=== PATIENT | female | born 1955 | race Caucasian/White ===

== ENCOUNTER → 2017-03-14 | Outpatient (CLI) | payer BC ==
[~2017-03-14] MED LIST: CALCTAB5 PO; CHOL100010 PO; HYDR-5688 PO; VALA500T39 PO
[2017-03-14 10:55] LABS: BLOOD UREA NITROGEN 11 mg/dl (7-18); BUN/CREATININE RATIO 14.2 (10-20); CARBON DIOXIDE 29 mmol/L (21-32); CHLORIDE 106 mmol/L (98-107); CHOLESTEROL 225 mg/dl (0-200); CREATININE 0.74 mg/dl (0.60-1.20); GLUCOSE 98 mg/dl (70-99); SODIUM 142 mmol/L (136-145)
[2017-03-14 10:57] LABS: CALCIUM 9.8 mg/dl (8.5-10.1)
[2017-03-14 11:06] LABS: CHOLESTEROL/HDL RATIO 4.2; HDL CHOLESTEROL 53 mg/dl; LDL CHOLESTEROL CALCULATED 130 mg/dl; TRIGLYCERIDES 210 mg/dl (0-150); VERY LOW DENSITY LIPOPROT CALC 42 mg/dl
== END | disposition home or self-care (01) ==
LOC: C.LABBC 08:34
PROVIDERS: ATTEND Internal Medicine Geriatric Medicine
DX: M85.80 Other specified disorders of bone density and structure, unspecified site (principal); R73.9 Hyperglycemia, unspecified; E78.5 Hyperlipidemia, unspecified; R03.0 Elevated blood-pressure reading, without diagnosis of hypertension; L71.9 Rosacea, unspecified

== ENCOUNTER → 2017-04-18 | Outpatient (CLI) | payer BC ==
[~2017-04-18] MED LIST changes: -HYDR-5688 PO
--- NOTE | 2017-04-18 10:48 | DIAGNOSTIC IMAGING REPORT ---
CHEST 2 VIEWS ROUTINE CLINICAL HISTORY: COUGH COMPARISON STUDY: 11/28/2014 FINDINGS: The cardiac and mediastinal contours are normal. There is no evidence of focal pulmonary consolidation. There is no evidence of failure. No pleural effusions are visualized.[ IMPRESSION: No active disease in the chest. Electronically signed by: Marc Long M.D. 04/18/2017 10:47 AM Dictated Date/Time: 04/18/2017 10:47 AM
== END ==
LOC: C.RADBC 10:30
PROVIDERS: ATTEND Internal Medicine Geriatric Medicine
DX: R05 Cough (principal)

== ENCOUNTER → 2017-09-01 | Outpatient (CLI) | payer BC ==
--- NOTE | 2017-09-01 14:35 | MAMMOGRAPHY REPORT ---
BILATERAL DIGITAL SCREENING MAMMOGRAM TOMOSYNTHESIS WITH CAD: 09/01/2017 CLINICAL HISTORY: Routine screening. Patient has no complaints. TECHNIQUE: Breast tomosynthesis in addition to standard 2D mammography was performed. Current study was also evaluated with a Computer Aided Detection (CAD) system. COMPARISON: Comparison is made to exams dated: 08/31/2016 mammogram, 08/29/2015 mammogram, 4 mammogram, 08/27/2013 mammogram, 08/24/2012 mammogram, and 08/23/2011 mammogram - [facility]. BREAST COMPOSITION: There are scattered areas of fibroglandular density in both breasts. FINDINGS: No suspicious masses, calcifications, or areas of architectural distortion are noted in ei ther breast. There has been no significant interval change compared to prior exams. IMPRESSION: ACR BI-RADS CATEGORY 1: NEGATIVE There is no mammographic evidence of malignancy. A 1 year screening mammogram is recommended. The pa tient will receive written notification of the results. Approximately 10% of breast cancers are not detected with mammography. A negative mammographic report should not delay biopsy if a clinically suggestive mass is present. Felicity Adame M.D. ah/:09/01/2017 13:49:23 Rivet Tosser: Jessica RAMACHANDRAN(Radha)(M), [facility] letter sent: Normal 1/2 BI-RADS Code: ACR BI-RADS Category 1: Negative
== END | disposition home or self-care (01) ==
LOC: C.MAMM 13:12
PROVIDERS: ATTEND Internal Medicine Geriatric Medicine
DX: Z12.31 Encounter for screening mammogram for malignant neoplasm of breast (principal)

== ENCOUNTER → 2017-11-16 | Outpatient (CLI) | payer OTHER ==
[~2017-11-16] MED LIST changes: +CALC-393 PO; +CHOL1TAB12 PO; +CIPR250T26 PO; +METR-163 PO; -VALA500T39 PO; +VALA500T41 PO
[2017-11-16 11:10] LABS: BASO % 0.4 %; BASO ABS # 0.02 K/uL (0-0.2); EOS % 2.3 %; EOS ABS # 0.12 K/uL (0-0.5); HEMATOCRIT 40.2 % (37-47); HEMOGLOBIN 13.9 g/dL (12.0-16.0); IG# 0.02 K/uL (0.00-0.02); LYMPH % 34.5 %; LYMPH ABS # 1.79 K/uL (1.2-3.4); MEAN CELL VOLUME 92.2 fL (80-100); MEAN CORPUSCULAR HEMOGLOBIN 31.9 pg (25-34); MEAN CORPUSCULAR HGB CONC 34.6 g/dl (32-36); MEAN PLATELET VOLUME 10.5 fL (7.4-10.4); MONO % 6.6 %; MONO ABS # 0.34 K/uL (0.11-0.59); NEUT % 55.8 %; PLATELET COUNT 218 K/uL (130-400); RED CELL DISTRIBUTION WIDTH CV 12.9 % (11.5-14.5); RED CELL DISTRIBUTION WIDTH SD 43.4 fL (36.4-46.3); WHITE BLOOD COUNT 5.19 K/uL (4.8-10.8)
[2017-11-16 11:21] LABS: HEMOGLOBIN A1C 5.2 % (4.5-5.6)
[2017-11-16 11:26] LABS: BLOOD UREA NITROGEN 14 mg/dl (7-18); CALCIUM 9.3 mg/dl (8.5-10.1); CARBON DIOXIDE 29 mmol/L (21-32); CREATININE 0.77 mg/dl (0.60-1.20); GLUCOSE 101 mg/dl (70-99); POTASSIUM 3.9 mmol/L (3.5-5.1); SODIUM 138 mmol/L (136-145)
[2017-11-16 11:28] LABS: CHOLESTEROL 222 mg/dl (0-200); LDL CHOLESTEROL CALCULATED 123 mg/dl
== END | disposition home or self-care (01) ==
LOC: C.LABBC 08:31
PROVIDERS: ATTEND Internal Medicine Geriatric Medicine
DX: R73.9 Hyperglycemia, unspecified (principal); E78.5 Hyperlipidemia, unspecified; E55.9 Vitamin D deficiency, unspecified; R03.0 Elevated blood-pressure reading, without diagnosis of hypertension

== ENCOUNTER 2018-03-17 16:27 | Inpatient (IN) | payer OTHER ==
[~2018-03-17] VITALS: Ht 154.9 cm; Wt 76.9 kg
[~2018-03-17 16:27] MED LIST changes: -CALC-393 PO; -CHOL1TAB12 PO; -CIPR250T23 PO; -METR-163 PO; -OPTIRAY 320 IV PRN
[2018-03-17] MEDS ORDERED: METRONIDAZOLE 500MG / 100ML NSS IV STA (17:09)
[2018-03-17] MEDS ORDERED: SODIUM CHLORIDE 0.9% 500ML 500 ML IV STA (17:09)
[2018-03-17] MEDS ORDERED: SODIUM CHLORIDE 0.9% 1000ML 1,000 ML IV STA (17:09)
[2018-03-17] MEDS ORDERED: CIPROFLOXACIN 400MG / 200ML D5W IV STA (17:09)
--- NOTE | 2018-03-17 17:09 | EMERGENCY ROOM VISIT NOTE ---
History First contact with patient: 16:45 Chief Complaint: ABNORMAL DIAGNOSTIC TESTING Stated Complaint: PAIN History of Present Illness The patient is a 63 year old female who presents to the Emergency Room with complaints of lower abdominal pain for the last 4 days. She took no medication for the symptoms. She did have fevers, chills, diaphoresis. Worse with movement and better with rest. Pain is currently a 5/10. She saw her PCP and outpt testing revealed diverticulitis with a 1.3cm abscess. No perforation. Pt denies LOC, headache, visual changes, neck pain, chest pain, breathing difficulties, vomiting, back pain, melena, hematochezia, urinary symptoms, numbness, weakness, lymphadenopathy, rash, or other complaints. Review of Systems See HPI for pertinent positives and negatives. A total of ten systems were reviewed and were otherwise negative. Past Medical/Surgical History Medical Problems: (1) divberticular abscess and diverticulitis Surgical Problems: (1) H/O cardiac catheterization (2) History of esophagogastroduodenoscopy (EGD) Social History Smoking Status: Never Smoker Current/Historical Medications Scheduled Calcium Carbonate (Calcium), 600 MG PO DAILY Cholecalciferol (Vitamin D3), 3,000 INTER.UNIT PO DAILY Physical Exam Vital Signs Date Time Temp Pulse Resp B/P (MAP) Pulse Ox O2 Delivery O2 Flow Rate FiO2 03/17/18 18:06 70 18 145/74 97 Room Air 03/17/18 16:34 36.5 65 18 160/85 97 Room Air Physical Exam GENERAL: Awake, alert, tired-appearing, in no distress HENT: Normocephalic, atraumatic. Oropharynx unremarkable. EYES: Normal conjunctiva. Sclera non-icteric. NECK: Supple. No nuchal rigidity. FROM. No masses. RESPIRATORY: Clear to auscultation. No wheezes. No rales. Normal respiratory effort. CARDIAC: Normal rate. Normal rhythm. No murmurs. No rubs. Extremities warm and well perfused. Pulses equal. No JVD. GI: Soft, non-distended. Moderate lower tenderness to palpation. No rebound but mild guarding. No masses. RECTAL: Deferred. MUSCULOSKELETAL: Atraumatic. Chest examination reveals no tenderness. The back is symmetrical on inspection without obvious abnormality. There is no CVA tenderness to palpation. No joint edema. LOWER EXTREMITIES: Calves are equal size bilaterally and non-tender. No edema. No discoloration. NEURO: Normal sensorium. No sensory or motor deficits noted. SKIN: No rash or jaundice noted. Medical Decision & Procedures ER Provider Diagnostic Interpretation: ABD/PELVIS IV AND ORAL CONT CLINICAL HISTORY: 63 years-old Female presenting with LLQ ABDOMINAL PAIN. TECHNIQUE: Multidetector CT of the abdomen and pelvis was performed after the administration of oral and intravenous contrast. IV contrast: 94 mL of Optiray 320. A dose lowering technique was used consistent with the principles of ALARA (as low as reasonably achievable). COMPARISON: None. CT DOSE (mGy.cm): The estimated cumulative dose is 814.36 mGycm. FINDINGS: Supply Chain Technician topogram: Unremarkable. Lung bases: Minimal basilar opacities, likely atelectasis. Normal heart size. No pericardial or pleural effusion. Liver: Normal morphology. No liver lesion. Patent hepatic vasculature. Biliary: No intrahepatic or extrahepatic biliary ductal dilatation. Normal gallbladder. Pancreas: Normal. Spleen: Parenchymal calcification suggest prior granulomatous infection. Adrenal glands: Normal. Kidneys and ureters: Normal. No hydronephrosis. Bladder: Normal. Pelvic organs: Uterus surgically absent. Normal ovaries. Focal soft tissue swelling in the region of the right labia may indicate Octaviano duct cyst. Bowel: Diverticulosis of the sigmoid colon with extensive wall thickening and pericolonic inflammatory change at the proximal sigmoid colon. Additionally, there is a 1.3 cm focal developing collection (series 3 image 308). This is located within the sigmoid colon mesentery. Diverticulosis of the distal descending colon also evident. No bowel obstruction. The appendix is normal. Peritoneal cavity: No free fluid or intraperitoneal gas. Extensive fascial thickening in the left lower quadrant. Lymph nodes: No enlarged lymph nodes in the abdomen or pelvis. Vasculature: Aorta and IVC patent and normal in caliber. Abdominal wall: Normal. Musculoskeletal: Normal apart from lucency within the S1 vertebral body, possibly prominent venous plexus. IMPRESSION: 1. Findings consistent with acute complicated diverticulitis of the proximal sigmoid colon. Developing 1.3 cm pericolonic abscess. No extraluminal gas. Electronically signed by: Blu Pan M.D. 03/17/2018 3:39 PM Dictated Date/Time: 03/17/2018 3:33 PM Laboratory Results Test 03/17/18 16:50 Urine Color YELLOW Urine Appearance CLEAR (CLEAR) Urine pH 5.0 (4.5-7.5) Urine Specific [place] <= 1.005 (1.000-1.030) Urine Protein NEG (NEG) Urine Glucose (UA) NEG (NEG) Urine Ketones NEG (NEG) Urine Occult Blood TRACE (NEG) Urine Nitrite NEG (NEG) Urine Bilirubin NEG (NEG) Urine Urobilinogen NEG (NEG) Urine Leukocyte Esterase NEG (NEG) Medications Administered Medications (Trade) Dose Ordered Sig/Kj Route Start Time Stop Time Status Last Admin Dose Admin Sodium Chloride 500 ml @ 999 mls/hr Q31M STAT IV 03/17/18 17:09 03/17/18 17:39 DC 03/17/18 17:09 999 MLS/HR Ciprofloxacin/ Dextrose (Cipro / D5W) 400 mg NOW STAT IV 03/17/18 17:09 03/17/18 17:11 DC 03/17/18 17:26 400 MG Metronidazole (Flagyl / Nss) 500 mg NOW STAT IV 03/17/18 17:09 03/17/18 17:11 DC 03/17/18 17:26 500 MG Medical Decision Triage Nursing notes reviewed. The patient's presentation and history were concerning for lower abdominal pain. Etiologies such as diverticulitis, appendicitis, obstruction, inflammatory bowel disease, renal colic, PUD, biliary pathology, pancreatitis, mesenteric ischemia, aortic pathology, infections, genitourinary, UTI, perforated viscus, as well as others were entertained. The patient has had 4 days of lower abdominal pain and went to see her PCP. She had outpatient blood work which was performed and did not reveal any significant abnormalities. Outpatient CT imaging did reveal diverticulitis with a very small abscess. There is no clear signs of perforation. On examination the patient was tender however she declined analgesia. She was hydrated. She has had an adverse reaction to Augmentin in the past. Therefore the patient was treated with IV Cipro and IV metronidazole. She will need further treatment in the hospital. I discussed this with the patient and her significant other. They were in agreement. A consultation was placed with the [facility] hospitalist service. I discussed case with Dr. Weaver. The patient was evaluated in the ER for further management. Impression Primary Impression: divberticular abscess and diverticulitis Departure Information Dispostion Being Evaluated By Hospitalist Referrals Guillard, Douglas,M.D. (PCP) Patient Instructions [facility]
[2018-03-17] MEDS ORDERED: CALC-393 PO (17:51)
[2018-03-17] MEDS ORDERED: CHOL1TAB12 PO (17:51)
[2018-03-17] MEDS ORDERED: ONDANSETRON INJ 2 MG/ML 2 ML VIAL IV PRN (18:15)
[2018-03-17] MEDS ORDERED: ZOLPIDEM TARTRATE 5 MG TAB PO PRN (18:15)
[2018-03-17] MEDS ORDERED: ALUMINUM/MAGNESIUM/SIMETH (MAALOX MAX) 30 ML UDC PO PRN (18:15)
[2018-03-17] MEDS ORDERED: MoRPHine SULFATE 2 MG/ML CARP IV PRN (18:15)
[2018-03-17] MEDS ORDERED: ACETAMINOPHEN 325 MG TAB PO PRN (18:15)
[2018-03-17] MEDS ORDERED: MAGNESIUM HYDROXIDE SUSP 30 ML UDC PO PRN (18:15)
--- NOTE | 2018-03-17 18:35 | History and Physical ---
History & Physical Date of Service March 17, 2018. History & Physical divberticular abscess and diverticulitis [id number]
[2018-03-17] MEDS ORDERED: POLYETHYLENE (MIRALAX) 17 GM PACK PO PRN (19:15)
[2018-03-17 19:46] VITALS: BP 144/83; PULSE 66; TEMP 36.8; O2SAT 94; BMI 32.0
[2018-03-17] MEDS ORDERED: PANTOprazole INJ 40 MG in SYRINGE 0 ML IV ONE (20:00)
--- NOTE | 2018-03-17 20:07 | HISTORY & PHYSICAL EXAMINATION ---
DATE OF ADMISSION: 03/17/2018 This is admission H and P, 31 minutes. CHIEF COMPLAINT: Abdominal pain. HISTORY OF PRESENT ILLNESS: The patient is a 63-year-old white female with a significant past medical history of diverticular abscess, diverticulitis, history of cardiac catheterization, cardiac arrest, history of GERD, hysterectomy, comes to the hospital Emergency Department because of the above chief complaint. The patient reported lower abdominal pain for 4 days. She was eating in a restaurant prior to this abdominal pain. Two days ago, she was feeling nauseated, lower abdominal pain, may have mild fever, she woke up with a lot of cold sweat. The abdominal pain is getting worse, the pain was 5/ 10 when she arrived into the Emergency Room. Initially she was seen by PCP. Lab was done. Not remarkable; however, abdominal CT studies, which shows 1.3 cm developing pericolonic abscess. Therefore, she was instructed to come to the hospital Emergency Room. In the ED, the patient got IV antibiotics, which includes Cipro, and Flagyl. She got one dose of morphine, the pain is better controlled. When I interviewed with her, she confirmed me the above information, complained about nauseated, lower abdomen. denied fever and chills, denied vomiting, denied diarrhea or constipation. Denied dysuria, urgency, or frequencies. Denied chest pain, palpitation, or lower extremity swelling. Denied cough, sputum, or shortness of breath. Denied dysuria, urgency, or frequencies. Denies skin rashes. Denied facial droop. There was no any weakness. ALLERGIES: ALLERGIC TO AUGMENTIN, MINOCYCLINE, TETRACYCLINE, LEVOCETIRIZINE. PAST MEDICAL HISTORY: Like I mentioned in the above include: 1. Diverticular abscess and diverticulitis. 2. History of cardiac cath and bradycardia, cardiac arrest. 3. History of GERD. PAST SURGICAL HISTORY: Include cardiac cath, tubal ligation, hysterectomy. FAMILY HISTORY: Noncontributory. SOCIAL HISTORY: Never smoked. Denied alcohol abuse disorder. Denied illicit drug abuse. CURRENT MEDICATIONS: Include calcium 600 mg p.o. daily, vitamin D 3000 international units p.o. daily. PHYSICAL EXAMINATION: VITAL SIGNS: Temperature 36.5, pulse 65, respiration rate 18, blood pressure 160/85 improved to 145/74. Pulse ox was 97% in room air. GENERAL: Patient is a white female, awake, alert, and orientated, conversational, follows all commands. No acute distress. HEAD: Normocephalic. EYES: Pupils equal, round, responds to light. EARS: Ear was normal. NOSE: Normal. NECK: Supple. LUNGS: Clear to auscultation. No wheezing, rhonchi, or crackles. HEART: Regular rhythm, no murmur, no gallop, no rubs. Pulse was symmetric and equal. No JVD. ABDOMEN: Soft. Moderate lower abdomen tenderness to palpation. No rebounds. Mild guarding. No masses. Bowel sounds positive. GENITOURINARY AND RECTAL: Deferred. MUSCULOSKELETAL: There was no limited range of motion. Bilateral CVA was nontender. Lower extremities, no swelling. Homans sign was negative. Calf was nontender. There was no clubbing, no cyanosis. NEUROLOGICAL EVALUATION: There was no facial droop, slurry speeches, or local weakness. SKIN: Has no rashes. LABORATORY STUDIES: In the Emergency Room, WBC 5, hemoglobin 13, platelet 209. Sodium 140, potassium is 3.6, BUN 12, creatinine 0.7. Blood glucose 112. AST 12, ALT is 19. Vitamin D was 25.9 in 11/2017. UA today is negative. Abdominal CT studies shows consistent with acute complicated diverticulitis of the proximal sigmoid colon, developing 1.3 cm pericolonic abscess. No extraluminal gas. ASSESSMENT AND PLAN: A 63-year-old white female with the conditions see below: 1. Acute complicated diverticulitis of the proximal sigmoid colon with developing 1.3 cm pericolonic abscess. 2. History of gastroesophageal reflux disease. 3. Vitamin D deficiency. PLAN: We will have patient admitted to the hospital, med/surg, n.p.o., IV fluids, IV Cipro and Flagyl, surgeon consult. GI prophylaxis, DVT prophylaxis, and supportive care. Discussed with the patient and family about the care plan and answered all their questions, patient is full code. MTDD
[2018-03-17] MEDS: NSS + 20MEQ KCL 1000ML 1,000 ML IV SCH (21:04)
[2018-03-17] MEDS: HEPARIN SOD 5000 UNIT/0.5 ML CARP SQ SCH (21:06)
[2018-03-17 23:20] VITALS: BP 117/65; PULSE 77; TEMP 36.8; O2SAT 94
[2018-03-18] MEDS: METRONIDAZOLE / NSS 500 MG in PREMIXED NSS 100 ML IV SCH ×3 (01:32→18:26)
[2018-03-18] MEDS: CIPROFLOXACIN / D5W 400 MG in PREMIXED IN D5W 200 ML IV SCH ×2 (05:48→18:29)
[2018-03-18] MEDS: NSS + 20MEQ KCL 1000ML 1,000 ML IV SCH ×2 (05:48→18:26)
[2018-03-18 05:52] LABS: BASO % 0.5 %; BASO ABS # 0.02 K/uL (0-0.2); EOS % 2.5 %; EOS ABS # 0.09 K/uL (0-0.5); HEMATOCRIT 36.2 % (37-47); HEMOGLOBIN 12.3 g/dL (12.0-16.0); IG# 0.01 K/uL (0.00-0.02); LYMPH % 36.2 %; LYMPH ABS # 1.32 K/uL (1.2-3.4); MEAN CELL VOLUME 91.4 fL (80-100); MEAN CORPUSCULAR HEMOGLOBIN 31.1 pg (25-34); MEAN PLATELET VOLUME 9.6 fL (7.4-10.4); MONO % 5.8 %; MONO ABS # 0.21 K/uL (0.11-0.59); NEUT % 54.7 %; PLATELET COUNT 188 K/uL (130-400); RED CELL DISTRIBUTION WIDTH CV 12.6 % (11.5-14.5); RED CELL DISTRIBUTION WIDTH SD 42.5 fL (36.4-46.3); WHITE BLOOD COUNT 3.65 K/uL (4.8-10.8)
[2018-03-18 06:23] LABS: CALCIUM 8.4 mg/dl (8.5-10.1); CREATININE 0.68 mg/dl (0.60-1.20); POTASSIUM 4.1 mmol/L (3.5-5.1)
[2018-03-18 06:24] LABS: PHOSPHORUS 3.4 mg/dl (2.5-4.9)
[2018-03-18 07:44] VITALS: BP 108/67; PULSE 58; TEMP 36.6; O2SAT 94
--- NOTE | 2018-03-18 08:38 | Progress Note ---
Subjective Date of Service: March 18, 2018. Subjective this pt states that she feels much better but overall is still feeing tired, the LLQ pain that she had is lessened and pain with walking has resolved Review of Systems Constitutional: + weakness, + fatigue, No fever, No chills Cardiac: No chest pain, No edema Abdomen: + pain, No nausea, No vomiting, No diarrhea Female : No dysuria, No urinary frequency Psychiatric: No depression symptoms Objective Vital Signs Date Time Temp Pulse Resp B/P (MAP) Pulse Ox O2 Delivery O2 Flow Rate FiO2 03/18/18 07:44 36.6 58 16 108/67 (81) 94 Room Air 03/17/18 23:48 Room Air 03/17/18 23:20 36.8 77 16 117/65 (82) 94 Room Air 03/17/18 19:46 36.8 66 18 144/83 94 Room Air 03/17/18 19:30 Room Air 03/17/18 19:25 67 19 132/87 96 03/17/18 18:06 70 18 145/74 97 Room Air 03/17/18 16:34 36.5 65 18 160/85 97 Room Air Physical Exam General Appearance: WD/WN, + mild distress Eyes: normal inspection, sclerae normal Neck: supple, no JVD Respiratory/Chest: chest non-tender, lungs clear, normal breath sounds Cardiovascular: regular rate, rhythm, no murmur Abdomen: normal bowel sounds, soft, + guarding, + tenderness Extremities: no pedal edema, no calf tenderness Neurologic/Psychiatric: alert, oriented x 3 Laboratory Results Last 24 Hours Test 03/17/18 16:50 03/18/18 05:37 Urine Color YELLOW Urine Appearance CLEAR Urine pH 5.0 Urine Specific [place] <= 1.005 Urine Protein NEG Urine Glucose (UA) NEG Urine Ketones NEG Urine Occult Blood TRACE Urine Nitrite NEG Urine Bilirubin NEG Urine Urobilinogen NEG Urine Leukocyte Esterase NEG Urine RBC 0-4 /hpf Urine WBC 1-5 /hpf Urine Epithelial Cells 10-20 /lpf Urine Bacteria NEG White Blood Count 3.65 K/uL Red Blood Count 3.96 M/uL Hemoglobin 12.3 g/dL Hematocrit 36.2 % Mean Corpuscular Volume 91.4 fL Mean Corpuscular Hemoglobin 31.1 pg Mean Corpuscular Hemoglobin Concent 34.0 g/dl Platelet Count 188 K/uL Mean Platelet Volume 9.6 fL Neutrophils (%) (Auto) 54.7 % Lymphocytes (%) (Auto) 36.2 % Monocytes (%) (Auto) 5.8 % Eosinophils (%) (Auto) 2.5 % Basophils (%) (Auto) 0.5 % Neutrophils # (Auto) 2.00 K/uL Lymphocytes # (Auto) 1.32 K/uL Monocytes # (Auto) 0.21 K/uL Eosinophils # (Auto) 0.09 K/uL Basophils # (Auto) 0.02 K/uL RDW Standard Deviation 42.5 fL RDW Coefficient of Variation 12.6 % Immature Granulocyte % (Auto) 0.3 % Immature Granulocyte # (Auto) 0.01 K/uL Prothrombin Time 10.3 SECONDS Prothromb Time International Ratio 1.0 Sodium Level 141 mmol/L Potassium Level 4.1 mmol/L Chloride Level 111 mmol/L Carbon Dioxide Level 26 mmol/L Anion Gap 4.0 mmol/L Blood Urea Nitrogen 9 mg/dl Creatinine 0.68 mg/dl Est Creatinine Clear Calc Drug Dose 79.4 ml/min Estimated GFR () 107.9 Estimated GFR (Non- 93.1 BUN/Creatinine Ratio 13.9 Random Glucose 91 mg/dl Calcium Level 8.4 mg/dl Phosphorus Level 3.4 mg/dl Magnesium Level 1.9 mg/dl Assessment and Plan 63-year-old white female with recurrent diverticulitis with concern for diverticular abscess Acute complicated diverticulitis of the proximal sigmoid colon with developing 1.3 cm pericolonic abscess. IV Cipro and Flagyl, surgeon consult is employing watchful waiting History of gastroesophageal reflux disease will continue ppi. Vitamin D deficiency resume supplement at discharge. patient is full code.
[2018-03-18] MEDS: HEPARIN SOD 5000 UNIT/0.5 ML CARP SQ SCH ×2 (09:28→20:36)
[2018-03-18] MEDS: PANTOprazole INJ 40 MG in SYRINGE 0 ML IV SCH (11:43)
--- NOTE | 2018-03-18 12:32 | Pre-Operative Consultation ---
History General Date of Service: March 18, 2018. Stated Complaint: diverticulitis HPI HPI: The patient is a 63 year old female being seen for surgical consultation at the request of Dr. Mckinley Weaver. She has presented with diverticulitis and small 1.3 cm abscess. Her symptoms began on Tuesday night when she noted a sharp stabbing pain in her lower abdomen. This improved and on Tue, she went out with friends. [place] very tired when she came home (unusual for her), had a bowel movement that started firm and ended more loose/ runny, had some nausea which she attributed to being dehydrated. [place] warm but did not take temp/ Went to bed and on , noted that she woke up with sweats and her abdomen was very sore. Hurt to walk or sit, hurt with the bumps in the car. Constant, pressure, achy sensation. No further nausea but overall did not feel well. Came to ER for evaluation. First episode like this. Had a cscope in 2014 which was normal. 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.) Past Surgical History: hysterectomy, other (tubal ligation, cardiac cath) Family History Family History: no pertinent family hx Social History Hx Tobacco Use In Past Year?: No Smoking Status: Never Smoker Allergies Allergies: Coded Allergies: Tetracyclines (Verified Allergy, Intermediate, hives, 10/12/16) Minocycline (Verified Allergy, Unknown, HIVES, 10/12/16) Amoxicillin (Unverified Adverse Reaction, Severe, GI SYMPTOMS, 10/12/16) Clavulanic Acid (Unverified Adverse Reaction, Severe, GI SYMPTOMS, ) Levocetirizine (Verified Adverse Reaction, Unknown, TIREDNESS, 10/12/16) Medications Current Inpatient Medications Current Inpatient Medications Medications (Trade) Dose Ordered Sig/Kj Route Start Time Stop Time Status Last Admin Dose Admin Acetaminophen (Tylenol Tab) 650 mg Q4H PRN PO 03/17/18 18:15 04/16/18 18:14 Al Hydrox/Mg Hydrox/Simethicone (Maalox Max Susp) 15 ml Q4H PRN PO 03/17/18 18:15 04/16/18 18:14 Magnesium Hydroxide (Milk Of Magnesia Susp) 30 ml Q6H PRN PO 03/17/18 18:15 04/16/18 18:14 Polyethylene (Miralax Powder Packet) 17 gm DAILY PRN PO 03/17/18 19:15 04/16/18 19:14 Zolpidem Tartrate (Ambien Tab) 5 mg HSZ PRN PO 03/17/18 18:15 04/16/18 18:14 Ondansetron HCl (Zofran Inj) 4 mg Q6H PRN IV 03/17/18 18:15 04/16/18 18:14 Heparin Sodium (Porcine) (Heparin Sq 5000 Unit/0.5ml) 5,000 unit Q12H SQ 03/17/18 21:00 04/16/18 20:59 03/18/18 09:28 5,000 UNIT Ciprofloxacin/ Dextrose 400 mg/ Prmx 200 ml @ 100 mls/hr Q12H IV 03/18/18 06:00 03/28/18 05:59 03/18/18 05:48 100 MLS/HR Metronidazole 500 mg/Prmx 100 ml @ 100 mls/hr Q8H IV 03/18/18 02:00 03/28/18 01:59 03/18/18 09:24 100 MLS/HR Potassium Chloride/Sodium Chloride 1,000 ml @ 100 mls/hr Q10H IV 03/17/18 20:00 04/16/18 19:59 03/18/18 05:48 100 MLS/HR Morphine Sulfate (MoRPHine SULFATE INJ) 2 mg Q4 PRN IV 03/17/18 18:15 03/31/18 18:14 Pantoprazole Sodium 40 mg/ Syringe 10 ml @ 5 mls/min DAILY@11 IV 03/18/18 11:00 04/17/18 10:59 03/18/18 11:43 5 MLS/MIN Review of Systems Review of Systems Constitutional: chills, fever, malaise Eyes: reports: no symptoms ENT: reports: no symptoms reported Cardiovascular: reports: no symptoms reported Respiratory: reports: no symptoms reported Gastrointestinal: see HPI Genitourinary - Female: reports: no symptoms Musculoskeletal: no symptoms reported Integumentary: no symptoms reported Neurologic: reports: no symptoms Physical Exam Physical Exam General Appearance: + WD/WN, No distress Ears, Nose, Throat: + normal ENT inspection Neck: No tracheal deviation, No lymphadenophy Respiratory: No chest tenderness, No accessory muscle use Cardiovascular: No JVD, No abnormal rate, No edema, No diastolic murmur, No systolic murmur Abdomen: + tenderness (mid left lower pelvic region ), + other (well healed hysterectomy scar), No abnormal bowel sounds, No rebound, No distension, No guarding Extremities: No abnormal range of motion, No edema, No slow capillary refill Neurologic/Psychiatric: No abnormal worm raiser II-XII, No decreased LOC, No disorientation Skin Characteristics: No abnormal color, No cyanosis Diagnostics Labs Labs Results Past 24 Hours Test 03/17/18 16:50 03/18/18 05:37 Range/Units Urine Color YELLOW Urine Appearance CLEAR CLEAR Urine pH 5.0 4.5-7.5 Urine Specific [place] <= 1.005 1.000-1.030 Urine Protein NEG NEG Urine Glucose (UA) NEG NEG Urine Ketones NEG NEG Urine Occult Blood TRACE NEG Urine Nitrite NEG NEG Urine Bilirubin NEG NEG Urine Urobilinogen NEG NEG Urine Leukocyte Esterase NEG NEG Urine RBC 0-4 0-4 /hpf Urine WBC 1-5 0-5 /hpf Urine Epithelial Cells 10-20 0-5 /lpf Urine Bacteria NEG NEG White Blood Count 3.65 4.8-10.8 K/uL Red Blood Count 3.96 4.2-5.4 M/uL Hemoglobin 12.3 12.0-16.0 g/dL Hematocrit 36.2 37-47 % Mean Corpuscular Volume 91.4 80-100 fL Mean Corpuscular Hemoglobin 31.1 25-34 pg Mean Corpuscular Hemoglobin Concent 34.0 32-36 g/dl Platelet Count 188 130-400 K/uL Mean Platelet Volume 9.6 7.4-10.4 fL Neutrophils (%) (Auto) 54.7 % Lymphocytes (%) (Auto) 36.2 % Monocytes (%) (Auto) 5.8 % Eosinophils (%) (Auto) 2.5 % Basophils (%) (Auto) 0.5 % Neutrophils # (Auto) 2.00 1.4-6.5 K/uL Lymphocytes # (Auto) 1.32 1.2-3.4 K/uL Monocytes # (Auto) 0.21 0.11-0.59 K/uL Eosinophils # (Auto) 0.09 0-0.5 K/uL Basophils # (Auto) 0.02 0-0.2 K/uL RDW Standard Deviation 42.5 36.4-46.3 fL RDW Coefficient of Variation 12.6 11.5-14.5 % Immature Granulocyte % (Auto) 0.3 % Immature Granulocyte # (Auto) 0.01 0.00-0.02 K/uL Prothrombin Time 10.3 9.0-12.0 SECONDS Prothromb Time International Ratio 1.0 0.9-1.1 Sodium Level 141 136-145 mmol/L Potassium Level 4.1 3.5-5.1 mmol/L Chloride Level 111 98-107 mmol/L Carbon Dioxide Level 26 21-32 mmol/L Anion Gap 4.0 3-11 mmol/L Blood Urea Nitrogen 9 7-18 mg/dl Creatinine 0.68 0.60-1.20 mg/dl Est Creatinine Clear Calc Drug Dose 79.4 ml/min Estimated GFR () 107.9 Estimated GFR (Non- 93.1 BUN/Creatinine Ratio 13.9 10-20 Random Glucose 91 70-99 mg/dl Calcium Level 8.4 8.5-10.1 mg/dl Phosphorus Level 3.4 2.5-4.9 mg/dl Magnesium Level 1.9 1.8-2.4 mg/dl Hepatitis C Antibody Screen NEG NEG Microbiology Results 03/17/18 Blood Culture, Received Pending 03/17/18 Blood Culture, Received Pending Lab Interpretation Lab Interpretation: labs were reviewed Diagnostic Radiology Diagnostic Radiology CT scan shows diverticulitis of sigmoid colon with 1.3 cm abscess in mesentery Impression Assessment and Plan Assessment and Plan 63 yr old woman with first episode of acute diverticulitis with small abscess. Discussed treatment with bowel rest, IV abx. Explained that if she fails to improve, would repeat imaging to assess for drainable fluid. Reviewed that surgical intervention in the acute setting typically involves resection and ostomy creation. At this point, there is no indication of a need for surgery. Will follow.
[2018-03-18 15:20] VITALS: BP 130/73; PULSE 55; TEMP 36.6; O2SAT 97
[2018-03-18 16:02] VITALS: Ht 154.9 cm; Wt 76.9 kg
[2018-03-18 22:20] VITALS: BP 120/72; PULSE 61; TEMP 36.9; O2SAT 98
[2018-03-19] MEDS: NSS + 20MEQ KCL 1000ML 1,000 ML IV SCH (02:02)
[2018-03-19] MEDS: METRONIDAZOLE / NSS 500 MG in PREMIXED NSS 100 ML IV SCH ×2 (02:02→09:46)
[2018-03-19] MEDS: CIPROFLOXACIN / D5W 400 MG in PREMIXED IN D5W 200 ML IV SCH (05:46)
[2018-03-19 06:58] VITALS: BP 148/81; PULSE 63; TEMP 36.6; O2SAT 96
[2018-03-19] MEDS: HEPARIN SOD 5000 UNIT/0.5 ML CARP SQ SCH (09:51)
--- NOTE | 2018-03-19 10:46 | Surgery Progress Note ---
Surgery Progress Note Date of Service March 19, 2018. Subjective + feeling well, + ambulating, + pain controlled, + diet (tolerating clears), No nausea, No vomiting Pt's soreness/ pain has completely resolved. Anxious to go home. Objective Vital Signs: Date Time Temp Pulse Resp B/P (MAP) Pulse Ox O2 Delivery O2 Flow Rate FiO2 03/19/18 08:00 Room Air 03/19/18 06:58 36.6 63 16 148/81 (103) 96 Room Air 03/19/18 00:00 Room Air 03/18/18 22:20 36.9 61 16 120/72 (88) 98 Room Air 03/18/18 15:20 Room Air 03/18/18 15:20 36.6 55 16 130/73 (92) 97 Room Air General Appearance: WD/WN, no apparent distress Respiratory/Chest: normal breath sounds, no respiratory distress Cardiovascular: regular rate, rhythm Abdomen: normal bowel sounds, non tender, non distended, soft Assessment & Plan Diverticulitis with small abscess responding to IV abx. Agree with advancement of diet. Plan is for conversion to PO abx and discharge as per medicine. Will f/ u with her pcp. No surgical f/u needed - will sign off. Please call with questions.
[2018-03-19] MEDS: PANTOprazole INJ 40 MG in SYRINGE 0 ML IV SCH (11:16)
[2018-03-19] MEDS ORDERED: METR-163 PO (14:02)
[2018-03-19] MEDS ORDERED: CIPR250T23 PO (14:02)
--- NOTE | 2018-03-19 14:04 | Discharge Instructions ---
Discharge Instructions Date of Service March 19, 2018. Admission Reason for Admission: Diverticular Abscess And Diverticulitis Discharge Discharge Diagnosis / Problem: diverticulits Discharge Goals Goal(s): Diagnostic testing, Therapeutic intervention Activity Recommendations Activity Limitations: as noted below Lifting Limitations: gradually increase as tolerated . Current Hospital Diet Patient's current hospital diet: Regular Diet, Low Fiber Diet Discharge Diet Recommended Diet: Regular Diet (low residual diet for 5 days then resume normal diet) Pending Studies Studies pending at discharge: no Medical Emergencies . Who to Call and When: Medical Emergencies: If at any time you feel your situation is an emergency, please call 911 immediately. . Non-Emergent Contact Non-Emergency issues call your: Primary Care Provider Call Non-Emergent contact if: temperature is above 101, your pain is unusual for you . . "Provider Documentation" section prepared by Eliu Cornelius. .
[2018-03-19 14:11] VITALS: BP 148/81; PULSE 63; TEMP 36.6; O2SAT 96
--- NOTE | 2018-03-19 16:23 | Discharge Summary ---
Discharge Summary Date of Service March 19, 2018. Discharge Summary Admission Date: March 17, 2018 at 18:16 Discharge Date: March 19, 2018 Discharge Disposition: Home Principal Diagnosis: acute diverticultis, peridiverticular abscess Medication Reconciliation New Medications: Ciprofloxacin (Ciprofloxacin HCl) 250 Mg Tab 500 MG PO BID, #20 DOSE Metronidazole (Flagyl) 500 Mg Tab 500 MG PO TID, #30 TAB Continued Medications: Calcium Carbonate (Calcium) 600 Mg Tab 600 MG PO DAILY Cholecalciferol (Vitamin D3) 3,000 Unit Tab 3000 INTER.UNIT PO DAILY Discharge Exam Review of Systems: Constitutional: No fever, No chills Cardiovascular: No chest pain, No orthopnea Abdomen: No pain, No nausea Genitourinary - Male: No hematuria, No dysuria Neurologic: No memory loss, No paralysis Psychiatric: No depression symptoms, No anhedonism, No anxiety Physical Exam: General Appearance: WD/WN, + mild distress Eyes: normal inspection, sclerae normal Neck: supple, no JVD Respiratory/Chest: chest non-tender, lungs clear, normal breath sounds Cardiovascular: regular rate, rhythm, no murmur Abdomen / GI: normal bowel sounds, non tender, soft Neurologic/Psychiatric: alert, oriented x 3 Hospital Course 63-year-old white female with recurrent diverticulitis with concern for diverticular abscess Acute complicated diverticulitis of the proximal sigmoid colon with developing 1.3 cm pericolonic abscess. Continue Cipro and Flagyl, will have outpt follow up and recommend repeat CT Abdomen Pelvis with contrast History of gastroesophageal reflux disease will continue ppi. Vitamin D deficiency resume supplement at discharge. patient is full code. Total Time Spent: Greater than 30 minutes This includes examination of the patient, discharge planning, medication reconciliation, and communication with other providers. Discharge Instructions Please refer to the electronic Patient Visit Report (Discharge Instructions) for additional information.
== END 2018-03-19 16:22 | disposition home or self-care (01) | DRG 392 ==
LOC: C.EDB 16:28 → C.MSN 18:16 → ENRESERV 19:12
PROVIDERS: ADMIT Hospitalist; ATTEND Internal Medicine
DX: K57.20 Diverticulitis of large intestine with perforation and abscess without bleeding (principal); Z79.899 Other long term (current) drug therapy; K21.9 Gastro-esophageal reflux disease without esophagitis; E55.9 Vitamin D deficiency, unspecified; Z88.1 Allergy status to other antibiotic agents

== ENCOUNTER → 2018-03-17 | Outpatient (CLI) | payer OTHER ==
[~2018-03-17] MED LIST changes: +CIPR250T23 PO; -CIPR250T26 PO; +OPTIRAY 320 IV PRN; +VALA500T39 PO; -VALA500T41 PO
[2018-03-17 15:28] LABS: BASO % 0.4 %; BASO ABS # 0.02 K/uL (0-0.2); EOS % 1.8 %; HEMATOCRIT 38.1 % (37-47); HEMOGLOBIN 13.2 g/dL (12.0-16.0); IG# 0.01 K/uL (0.00-0.02); LYMPH % 30.9 %; LYMPH ABS # 1.67 K/uL (1.2-3.4); MEAN CELL VOLUME 91.4 fL (80-100); MEAN CORPUSCULAR HEMOGLOBIN 31.7 pg (25-34); MEAN CORPUSCULAR HGB CONC 34.6 g/dl (32-36); MONO % 4.3 %; MONO ABS # 0.23 K/uL (0.11-0.59); NEUT % 62.4 %; NEUT ABS # 3.38 K/uL (1.4-6.5); PLATELET COUNT 209 K/uL (130-400); RED CELL DISTRIBUTION WIDTH CV 12.7 % (11.5-14.5); RED CELL DISTRIBUTION WIDTH SD 42.6 fL (36.4-46.3); WHITE BLOOD COUNT 5.41 K/uL (4.8-10.8)
--- NOTE | 2018-03-17 15:41 | DIAGNOSTIC IMAGING REPORT ---
ABD/PELVIS IV AND ORAL CONT CLINICAL HISTORY: 63 years-old Female presenting with LLQ ABDOMINAL PAIN. TECHNIQUE: Multidetector CT of the abdomen and pelvis was performed after the administration of oral and intravenous contrast. IV contrast: 94 mL of Optiray 320. A dose lowering technique was used consistent with the principles of ALARA (as low as reasonably achievable). COMPARISON: None. CT DOSE (mGy.cm): The estimated cumulative dose is 814.36 mGycm. FINDINGS: Diesel Truck Technician topogram: Unremarkable. Lung bases: Minimal basilar opacities, likely atelectasis. Normal heart size. No pericardial or pleural effusion. Liver: Normal morphology. No liver lesion. Patent hepatic vasculature. Biliary: No intrahepatic or extrahepatic biliary ductal dilatation. Normal gallbladder. Pancreas: Normal. Spleen: Parenchymal calcification suggest prior granulomatous infection. Adrenal glands: Normal. Kidneys and ureters: Normal. No hydronephrosis. Bladder: Normal. Pelvic organs: Uterus surgically absent. Normal ovaries. Focal soft tissue swelling in the region of the right labia may indicate Octaviano duct cyst. Bowel: Diverticulosis of the sigmoid colon with extensive wall thickening and pericolonic inflammatory change at the proximal sigmoid colon. Additionally, there is a 1.3 cm focal developing collection (series 3 image 308). This is located within the sigmoid colon mesentery. Diverticulosis of the distal descending colon also evident. No bowel obstruction. The appendix is normal. Peritoneal cavity: No free fluid or intraperitoneal gas. Extensive fascial thickening in the left lower quadrant. Lymph nodes: No enlarged lymph nodes in the abdomen or pelvis. Vasculature: Aorta and IVC patent and normal in caliber. Abdominal wall: Normal. Musculoskeletal: Normal apart from lucency within the S1 vertebral body, possibly prominent venous plexus. IMPRESSION: 1. Findings consistent with acute complicated diverticulitis of the proximal sigmoid colon. Developing 1.3 cm pericolonic abscess. No extraluminal gas. Electronically signed by: Blu Pan M.D. 03/17/2018 3:39 PM Dictated Date/Time: 03/17/2018 3:33 PM
[2018-03-17 15:46] LABS: ALBUMIN 3.5 gm/dl (3.4-5.0); ALT/SGPT 19 U/L (12-78); AST/SGOT 12 U/L (15-37); BLOOD UREA NITROGEN 12 mg/dl (7-18); CALCIUM 9.3 mg/dl (8.5-10.1); CARBON DIOXIDE 28 mmol/L (21-32); CREATININE 0.75 mg/dl (0.60-1.20); GLUCOSE 112 mg/dl (70-99); POTASSIUM 3.6 mmol/L (3.5-5.1); SODIUM 140 mmol/L (136-145)
[2018-03-17 15:49] LABS: ALKALINE PHOSPHATASE 64 U/L (45-117); TOTAL PROTEIN 7.6 gm/dl (6.4-8.2)
== END | disposition home or self-care (01) ==
LOC: C.CTS 12:46
PROVIDERS: ATTEND Physician Assistant Medical
DX: R10.32 Left lower quadrant pain (principal)

== ENCOUNTER → 2018-03-24 | Outpatient (CLI) | payer OTHER ==
[~2018-03-24] MED LIST changes: +CALC-393 PO; -CALCTAB5 PO; -CHOL100010 PO; +CHOL1TAB12 PO; +CIPR250T26 PO; +METR-163 PO; -VALA500T39 PO
--- NOTE | 2018-03-24 13:40 | DIAGNOSTIC IMAGING REPORT ---
ABDOMEN AND PELVIS CT WITH IV AND ORAL CONTRAST CT DOSE: 400.31 mGy.cm HISTORY: Follow-up study in a patient with colonic diverticulosis with abscess K57.20 Colonic diverticular [id number] TECHNIQUE: Multiaxial CT images of the abdomen and pelvis were performed following the use of intravenous and oral contrast. A dose lowering technique was utilized adhering to the principles of ALARA. COMPARISON STUDY: CT abdomen and pelvis 03/17/2018. FINDINGS: Mild subsegmental bibasilar atelectasis. No pneumatosis or pneumoperitoneum. Imaged inferior cardiac chambers are unremarkable. Gallbladder, liver, spleen, pancreas and adrenal glands are within normal limits. There are a few punctate calcifications noted within the spleen. Kidneys, ureters and bladder are within normal limits. Prior hysterectomy. No adnexal mass lesions. Aorta is normal in course and caliber. No aneurysm. No bulky adenopathy. There is no bowel obstruction. Colonic diverticulosis with decreased wall thickening of the sigmoid colon with decreased inflammatory changes. There is a mildly prominent diverticulum on image 234 series 3 without evidence of abscess. No drainable fluid collections. Normal appendix. Soft tissues are unremarkable. The bones appear intact. Hemangioma of the S1 and L3 vertebral bodies. IMPRESSION: 1. Decreased inflammatory changes about the sigmoid colon compatible with resolving sigmoid diverticulitis. There is no evidence of pericolonic abscess formation or perforation. 2. Normal appendix. 3. No bowel obstruction. 4. Prior hysterectomy. Electronically signed by: Edgard Polanco M.D. 03/24/2018 1:39 PM Dictated Date/Time: 03/24/2018 1:32 PM
== END | disposition home or self-care (01) ==
LOC: C.CTS 11:04
PROVIDERS: ATTEND Physician Assistant Medical
DX: K57.20 Diverticulitis of large intestine with perforation and abscess without bleeding (principal)

== ENCOUNTER → 2018-06-07 | Outpatient (CLI) | payer OTHER | END | disposition home or self-care (01) | LOC: C.PAPS 14:50 | PROVIDERS: ATTEND Obstetrics & Gynecology | DX: Z12.4 Encounter for screening for malignant neoplasm of cervix (principal); N95.2 Postmenopausal atrophic vaginitis ==

== ENCOUNTER → 2018-06-08 | Outpatient (CLI) | payer OTHER ==
--- NOTE | 2018-06-08 15:23 | DIAGNOSTIC IMAGING REPORT ---
KUB CLINICAL HISTORY: R10.32 pain. Constipation. COMPARISON STUDY: No previous studies for comparison. FINDINGS: The soft tissues, psoas shadows, renal outlines and intestinal gas pattern appear normal. There is no evidence for bowel obstruction. No abnormal abdominal calcifications are seen. IMPRESSION: Normal study. No evidence for fecal impaction. Unremarkable fecal load throughout the colon. The above report was generated using voice recognition software. It may contain grammatical, syntax or spelling errors. Electronically signed by: Shiraz Newman M.D. 06/08/2018 3:22 PM Dictated Date/Time: 06/08/2018 3:21 PM
[2018-06-08 17:06] LABS: BASO % 0.3 %; BASO ABS # 0.02 K/uL (0-0.2); EOS % 1.6 %; HEMATOCRIT 38.8 % (37-47); HEMOGLOBIN 13.4 g/dL (12.0-16.0); IG# 0.01 K/uL (0.00-0.02); LYMPH % 35.7 %; LYMPH ABS # 2.28 K/uL (1.2-3.4); MEAN CELL VOLUME 92.2 fL (80-100); MEAN CORPUSCULAR HEMOGLOBIN 31.8 pg (25-34); MEAN CORPUSCULAR HGB CONC 34.5 g/dl (32-36); MEAN PLATELET VOLUME 10.3 fL (7.4-10.4); MONO % 5.5 %; MONO ABS # 0.35 K/uL (0.11-0.59); NEUT % 56.7 %; NEUT ABS # 3.62 K/uL (1.4-6.5); PLATELET COUNT 223 K/uL (130-400); RED CELL DISTRIBUTION WIDTH SD 43.7 fL (36.4-46.3); WHITE BLOOD COUNT 6.38 K/uL (4.8-10.8)
[2018-06-08 17:26] LABS: ALBUMIN 3.9 gm/dl (3.4-5.0); ALKALINE PHOSPHATASE 58 U/L (45-117); ALT/SGPT 27 U/L (12-78); AST/SGOT 17 U/L (15-37); BLOOD UREA NITROGEN 17 mg/dl (7-18); CALCIUM 8.9 mg/dl (8.5-10.1); CARBON DIOXIDE 31 mmol/L (21-32); CREATININE 0.92 mg/dl (0.60-1.20); GLUCOSE 89 mg/dl (70-99); SODIUM 139 mmol/L (136-145); TOTAL PROTEIN 7.2 gm/dl (6.4-8.2)
== END | disposition home or self-care (01) ==
LOC: C.RADBC 15:00
PROVIDERS: ATTEND Nurse Practitioner Adult Health
DX: R10.32 Left lower quadrant pain (principal); K59.00 Constipation, unspecified